=== PATIENT | male | born 1990 | race Caucasian/White ===

== ENCOUNTER → 2018-02-13 | Outpatient (REF) | payer OTHER ==
[2018-02-19 15:03] LABS: EBV VIRAL CAPSID AG IgG POSITIVE
[2018-02-19 15:03] LABS: EBV VIRAL CAPSID AG IgM NEGATIVE
[2018-02-19 15:04] LABS: EBV AB TO NUCLEAR ANTIGEN POSITIVE
== END ==
LOC: M LAB REF 09:29
DX: R53.83 Other fatigue (principal)

== ENCOUNTER → 2018-12-19 | Outpatient (REF) | payer OTHER | LOC: M LAB REF 12:16 | PROVIDERS: ATTEND Physician Assistant | DX: J02.9 Acute pharyngitis, unspecified (principal) ==

== ENCOUNTER → 2022-02-23 | Outpatient (REF) | payer OTHER ==
[2022-02-23 17:20] LABS: HEMATOCRIT 47.7 % (42.0-52.0); HEMOGLOBIN 16.2 g/dl (13.5-17.5); MEAN CORPUSCULAR HEMOGLOBIN 32.3 pg (27.0-33.0); MEAN CORPUSCULAR VOLUME 95.2 fl (80.0-96.0); PLATELET COUNT, AUTOMATED 289 10^3/uL (150-450); RED BLOOD COUNT 5.01 10^6/uL (4.30-6.10); WHITE BLOOD COUNT 6.5 10^3/uL (4.0-10.0)
[2022-02-23 17:51] LABS: MALB URINE SIEMENS 19.7 MG/L; MAU/CREAT RATIO 12.1 MCG/MG (0.0-30.0)
[2022-02-23 18:13] LABS: ALBUMIN 4.3 GM/DL (3.2-5.2); ALT/SGPT 133 U/L (12-78); BILIRUBIN,TOTAL 0.7 MG/DL (0.2-1.0); BLOOD UREA NITROGEN 12 MG/DL (7-18); CALCIUM LEVEL 10.3 MG/DL (8.5-10.1); CARBON DIOXIDE LEVEL 29 MEQ/L (21-32); CHLORIDE LEVEL 102 MEQ/L (98-107); CREATININE FOR GFR 1.02 MG/DL (0.70-1.30); FREE T4 1.01 NG/DL (0.76-1.46); GLOMERULAR FILTRATION RATE > 60.0 (>60); GLUCOSE, FASTING 77 MG/DL (70-100); POTASSIUM SERUM 4.9 MEQ/L (3.5-5.1); SODIUM LEVEL 136 MEQ/L (136-145); THYROID STIMULATING HORMONE 0.724 uIU/ML (0.358-3.740); TOTAL PROTEIN 8.7 GM/DL (6.4-8.2)
== END ==
LOC: M SFHCADAM 13:55
PROVIDERS: ATTEND Physician Assistant
DX: F41.9 Anxiety disorder, unspecified (principal)

== ENCOUNTER → 2024-02-27 | Outpatient (REF) | payer OTHER | LOC: M LAB REF 12:16 | PROVIDERS: ATTEND Physician Assistant | DX: R50.9 Fever, unspecified (principal) ==